=== PATIENT | female | born 1950 | race Caucasian/White ===

== ENCOUNTER → 2019-10-29 | Outpatient (CLI) | payer MEDICARE, OTHER ==
[~2019-10-29] MED LIST: ASPI81CH PO; ATOR20 PO; CARV6.25 PO; CLOP75 PO; DICL75ER PO; IRON PO; LEVSOD100 PO; LOSA25 PO; NAPR220 PO; TORS10 PO; Vitamin D2000 UNIT PO
[2019-10-29 14:53] LABS: Creatinine, Urine Random 54.3 mg/dL (27.00-270.00); Protein, Urine Random 5.9 mg/dL (0.0-11.9)
== END | disposition home or self-care (01) ==
LOC: LAB 13:50 → LAB SHORT 13:50
PROVIDERS: Internal Medicine
DX: N18.4 Chronic kidney disease, stage 4 (severe) (principal)
CPT/HCPCS: 82570; 84156

== ENCOUNTER 2019-11-30 13:28 | Inpatient (IN) | payer MEDICARE, OTHER ==
[~2019-11-30] VITALS: Ht 154.9 cm; Wt 49.8 kg
--- NOTE | 2019-12-03 07:10 | NUR ---
Patient up to Ambulate independently. Gait steady. Surgical site prepped with 2% Chlorhexidine cloth wipe. History, Chart, Medications and Allergies reviewed before start of procedure. Lungs clear T/O to Auscultation. Patient confirms NPO status and agrees with scheduled surgery. Pre-Op teaching done. Pt verbalizes understanding. Patient reports completing Chlorhexadine shower X2 prior to admission to hospital.
--- NOTE | 2019-12-03 18:30 | NUR ---
SHIFT SUMMARY PT EATING AND DRINKING, VOIDING. PT [place] WITH CLEAR SPEECH. PT HAS TEDS/PAS/POLAR PAC IN PLACE. FAMILY IN/OUT OF ROOM. PT WORKED WITH THERAPY AND HAS ALSO WALKED IN HALLWAY WITH GB AND WALKER. PT REPORTS NOT MUCH PAIN AT ALL.
--- NOTE | 2019-12-04 03:40 | NUR ---
SHIFT SUMMARY POD 1 S/P RIGHT RADHA. AQUACEL C/D/I WITH POLAR PACK, TEDS, AND SCD'S IN PLACE. ABLE TO AMBULATE IND WITH SBA, FWW, AND GB. MEDICATED ONCE WITH ONE ROXICODONE DURING SHIFT. TOLERATING PO INTAKE, DENIES N/V. APPEARS TO HAVE RESTED WELL T/O NIGHT. IS CURRENTLY SLEEPING IN BED WITH CALL LIGHT IN REACH. WILL CONTINUE TO MONITOR AND GIVE REPORT TO ONCOMING RN.
[2019-12-04 04:18] LABS: BASOPHILS ABSOLUTE AUTO 0.01 K/mm3 (0.00-0.23); BASOPHILS PERCENT AUTO 0 % (0-2); EOSINOPHILS ABSOLUTE AUTO 0.01 K/mm3 (0.00-0.68); EOSINOPHILS PERCENT AUTO 0 % (0-6); Hematocrit 25.9 % (33.0-51.0); Hemoglobin 8.2 g/dL (11.5-16.0); IMMATURE GRAN ABSOLUTE AUTO 0.04 K/mm3 (0.00-0.10); IMMATURE GRAN PERCENT AUTO 0 % (0-1); LYMPHOCYTES ABSOLUTE AUTO 0.77 K/mm3 (0.84-5.20); LYMPHOCYTES PERCENT AUTO 8 % (21-46); MONOCYTES ABSOLUTE AUTO 0.78 K/mm3 (0.16-1.47); MONOCYTES PERCENT AUTO 9 % (4-13); Mean Corpuscular HGB 29.2 pg (26.0-34.0); Mean Corpuscular HGB Conc 31.7 g/dL (31.5-36.5); Mean Corpuscular Volume 92 fL (80-100); Mean Platelet Volume 9.2 fL (9.1-12.4); NEUTROPHILS ABSOLUTE AUTO 7.59 K/mm3 (1.96-9.15); NEUTROPHILS PERCENT AUTO 83 % (41-73); Platelet Count 225 K/mm3 (150-400); RDW Coefficient Variation 12.8 % (11.7-14.2); RDW Standard Deviation 43.5 fL (35.1-46.3); Red Blood Cell Count 2.81 M/mm3 (3.80-5.20)
[2019-12-04 04:32] LABS: Bun/Creatinine Ratio 21.2 (12.0-20.0); Calcium, Blood 8.6 mg/dL (8.5-10.1); Creatinine, Blood 1.65 mg/dL (0.40-1.00); Magnesium, Blood 2.3 mg/dL (1.6-2.4); Potassium, Blood 4.5 mmol/L (3.5-5.5)
--- NOTE | 2019-12-04 07:52 | NUR ---
CLAUDIA (ALFA) HERE TO SEE PT.
[2019-12-04] MEDS ORDERED: FERSU300 PO (10:04)
[2019-12-04] MEDS ORDERED: ROXICODONE5 MG PO (10:06)
== END 2019-12-04 12:56 | disposition home or self-care (01) | DRG 470 ==
LOC: SURS 12-03 05:51 → PRE IP 12-03 07:30 → SURS 12-03 12:07
PROVIDERS: ADMIT Orthopaedic Surgery
PROC: 0SR904A Replacement of Right Hip Joint with Ceramic on Polyethylene Synthetic Substitute, Uncemented, Open Approach (ICD-10-PCS; principal; 2019-12-03 07:30)
DX: M16.11 Unilateral primary osteoarthritis, right hip (principal); I25.10 Atherosclerotic heart disease of native coronary artery without angina pectoris; I12.9 Hypertensive chronic kidney disease with stage 1 through stage 4 chronic kidney disease, or unspecified chronic kidney disease; N18.9 Chronic kidney disease, unspecified; E11.22 Type 2 diabetes mellitus with diabetic chronic kidney disease; J44.9 Chronic obstructive pulmonary disease, unspecified; Z95.5 Presence of coronary angioplasty implant and graft; Z95.1 Presence of aortocoronary bypass graft; I25.2 Old myocardial infarction; Z87.891 Personal history of nicotine dependence
CPT/HCPCS: 36415; 72170; 80048; 82947; 83735; 85025; 88300; 88305; 97110; 97116; 97162; 97530; A9270-GY; C1776; J0171; J0690; J0735; J1100; J1885; J2250; J2370; J2405; J2550; J2704; J2795; J3010; J7120

== ENCOUNTER → 2024-08-06 | Outpatient (CLI) | payer MEDICARE, OTHER ==
[~2024-08-06] MED LIST changes: +FERSU300 PO; +ROXICODONE5 MG PO
[2024-08-06 13:25] LABS: BASOPHILS ABSOLUTE AUTO 0.01 K/mm3 (0.00-0.23); BASOPHILS PERCENT AUTO 0 % (0-2); EOSINOPHILS PERCENT AUTO 0 % (0-6); Hematocrit 43.3 % (33.0-51.0); Hemoglobin 14.5 g/dL (11.5-16.0); IMMATURE GRAN ABSOLUTE AUTO 0.04 K/mm3 (0.00-0.10); IMMATURE GRAN PERCENT AUTO 1 % (0-1); LYMPHOCYTES ABSOLUTE AUTO 0.19 K/mm3 (0.84-5.20); LYMPHOCYTES PERCENT AUTO 2 % (21-46); MONOCYTES ABSOLUTE AUTO 0.29 K/mm3 (0.16-1.47); MONOCYTES PERCENT AUTO 4 % (4-13); Mean Corpuscular HGB 27.9 pg (26.0-34.0); Mean Corpuscular HGB Conc 33.5 g/dL (31.5-36.5); Mean Corpuscular Volume 83 fL (80-100); Mean Platelet Volume 10.4 fL (9.1-12.4); NEUTROPHILS ABSOLUTE AUTO 7.75 K/mm3 (1.96-9.15); NEUTROPHILS PERCENT AUTO 94 % (41-73); Platelet Count 189 K/mm3 (150-400); RDW Coefficient Variation 16.7 % (11.7-14.2); RDW Standard Deviation 48.6 fL (35.1-46.3); Red Blood Cell Count 5.19 M/mm3 (3.80-5.20); White Blood Cell Count 8.28 K/mm3 (4.00-11.30)
[2024-08-06 13:37] LABS: Albumin, Blood 3.5 g/dL (3.4-5.0); Albumin/Globulin Ratio 1.3 (0.8-1.8); Bilirubin, Total 2.5 mg/dL (0.1-1.0); Calcium, Blood 9.6 mg/dL (8.5-10.1); Creatinine, Blood 2.61 mg/dL (0.40-1.00); Globulin, Blood 2.8 g/dL (2.2-4.0); Potassium, Blood 4.4 mmol/L (3.5-5.5); Total Protein, Blood 6.3 g/dL (6.4-8.2)
== END | disposition home or self-care (01) ==
LOC: LAB SHORT 13:22 → LAB 13:22
PROVIDERS: Physician Assistant
DX: R60.9 Edema, unspecified (principal)
CPT/HCPCS: 80053; 83690; 83880; 85025; 85379

== ENCOUNTER 2024-09-07 20:16 | Emergency (ER) | payer MEDICARE, OTHER ==
[~2024-09-07] VITALS: Ht 154.9 cm; Wt 58.1 kg
[2024-09-07 21:54] LABS: BASOPHILS ABSOLUTE AUTO 0.03 K/mm3 (0.00-0.23); BASOPHILS PERCENT AUTO 1 % (0-2); EOSINOPHILS ABSOLUTE AUTO 0.05 K/mm3 (0.00-0.68); EOSINOPHILS PERCENT AUTO 1 % (0-6); Hematocrit 36.8 % (33.0-51.0); Hemoglobin 12.3 g/dL (11.5-16.0); IMMATURE GRAN ABSOLUTE AUTO 0.03 K/mm3 (0.00-0.10); IMMATURE GRAN PERCENT AUTO 1 % (0-1); LYMPHOCYTES ABSOLUTE AUTO 0.27 K/mm3 (0.84-5.20); LYMPHOCYTES PERCENT AUTO 4 % (21-46); MONOCYTES ABSOLUTE AUTO 0.43 K/mm3 (0.16-1.47); MONOCYTES PERCENT AUTO 7 % (4-13); Mean Corpuscular HGB 28.1 pg (26.0-34.0); Mean Corpuscular HGB Conc 33.4 g/dL (31.5-36.5); Mean Corpuscular Volume 84 fL (80-100); Mean Platelet Volume 10.7 fL (9.1-12.4); NEUTROPHILS ABSOLUTE AUTO 5.71 K/mm3 (1.96-9.15); NEUTROPHILS PERCENT AUTO 88 % (41-73); Platelet Count 142 K/mm3 (150-400); RDW Standard Deviation 54.6 fL (35.1-46.3); Red Blood Cell Count 4.37 M/mm3 (3.80-5.20); White Blood Cell Count 6.52 K/mm3 (4.00-11.30)
[2024-09-07 22:01] LABS: Source, Urine Clean Catch
[2024-09-07 22:07] LABS: Appearance, Urine Clear (Clear); Bilirubin, Urine Neg (Neg); Blood, Urine Neg (Neg); Color, Urine Yellow (P-Yellow); Glucose Qualitative, Urine 4+ (Neg); Ketones, Urine Neg (Neg); Leukocyte Esterase, Urine Neg (Neg); Nitrite, Urine Neg (Neg); Protein, Urine 1+ (Neg); Specific Gravity, Urine 1.015 (1.003-1.022); Urobilinogen, Urine NORM (Normal)
[2024-09-07 22:12] LABS: Albumin, Blood 2.8 g/dL (3.4-5.0); Bilirubin, Total 1.5 mg/dL (0.1-1.0); Calcium, Blood 9.1 mg/dL (8.5-10.1); Creatinine, Blood 1.64 mg/dL (0.40-1.00); Globulin, Blood 2.8 g/dL (2.2-4.0); Magnesium, Blood 2.1 mg/dL (1.6-2.4); Potassium, Blood 4.5 mmol/L (3.5-5.5); Total Protein, Blood 5.6 g/dL (6.4-8.2)
[2024-09-07 22:40] LABS: Influenza A, PCR NEGATIVE (NEGATIVE); Influenza B, PCR NEGATIVE (NEGATIVE); Resp Syncytial Virus, PCR NEGATIVE (NEGATIVE); SARS-Cov-2 (COVID-19) PCR, MMC NEGATIVE (NEGATIVE)
[2024-09-07 23:41] VITALS: BP 90/67
== END 2024-09-07 23:41 | disposition home or self-care (01) ==
LOC: ER 20:16
PROVIDERS: Student in an Organized Health Care Education/Training Program
DX: R53.1 Weakness (principal); E78.5 Hyperlipidemia, unspecified; E03.9 Hypothyroidism, unspecified; Z95.810 Presence of automatic (implantable) cardiac defibrillator; Z87.891 Personal history of nicotine dependence; Z79.82 Long term (current) use of aspirin; Z79.899 Other long term (current) drug therapy; Z88.5 Allergy status to narcotic agent
CPT/HCPCS: 0241U; 71045; 80053; 83735; 85025; 99284-25

== ENCOUNTER 2024-09-13 03:27 | Emergency (ER) | payer MEDICARE, OTHER ==
[~2024-09-13] VITALS: Ht 147.3 cm; Wt 47.6 kg
[2024-09-13 03:38] VITALS: BP 106/72
[2024-09-13 03:44] LABS: Source, Urine Straight Cath
[2024-09-13 03:47] LABS: Bilirubin, Urine Neg (Neg); Blood, Urine Neg (Neg); Glucose Qualitative, Urine Neg (Neg); Ketones, Urine Neg (Neg); Leukocyte Esterase, Urine Neg (Neg); Nitrite, Urine Neg (Neg); Protein, Urine Neg (Neg); Specific Gravity, Urine 1.015 (1.003-1.022); Urobilinogen, Urine 2+ (Normal)
[2024-09-13 03:58] LABS: Appearance, Urine Clear (Clear); Color, Urine Yellow (P-Yellow)
== END 2024-09-13 04:41 | disposition home or self-care (01) ==
LOC: ER 03:27
PROVIDERS: Emergency Medicine
DX: Z71.1 Person with feared health complaint in whom no diagnosis is made (principal); Z87.891 Personal history of nicotine dependence; E78.5 Hyperlipidemia, unspecified; E03.9 Hypothyroidism, unspecified; Z79.82 Long term (current) use of aspirin; Z79.899 Other long term (current) drug therapy; Z88.5 Allergy status to narcotic agent
CPT/HCPCS: 51701; 81003; 99283-25

== ENCOUNTER 2024-09-13 11:50 | Emergency (ER) | payer MEDICARE, OTHER ==
[~2024-09-13] VITALS: Ht 154.9 cm; Wt 49.9 kg
[2024-09-13 12:45] LABS: BASOPHILS ABSOLUTE AUTO 0.02 K/mm3 (0.00-0.23); BASOPHILS PERCENT AUTO 0 % (0-2); EOSINOPHILS PERCENT AUTO 0 % (0-6); Hematocrit 29.9 % (33.0-51.0); IMMATURE GRAN ABSOLUTE AUTO 0.03 K/mm3 (0.00-0.10); IMMATURE GRAN PERCENT AUTO 1 % (0-1); LYMPHOCYTES ABSOLUTE AUTO 0.31 K/mm3 (0.84-5.20); LYMPHOCYTES PERCENT AUTO 6 % (21-46); MONOCYTES ABSOLUTE AUTO 0.28 K/mm3 (0.16-1.47); MONOCYTES PERCENT AUTO 5 % (4-13); Mean Corpuscular HGB 28.6 pg (26.0-34.0); Mean Corpuscular HGB Conc 33.4 g/dL (31.5-36.5); Mean Corpuscular Volume 85 fL (80-100); Mean Platelet Volume 11.5 fL (9.1-12.4); NEUTROPHILS ABSOLUTE AUTO 4.82 K/mm3 (1.96-9.15); NEUTROPHILS PERCENT AUTO 88 % (41-73); Platelet Count 184 K/mm3 (150-400); RDW Coefficient Variation 20.3 % (11.7-14.2); RDW Standard Deviation 59.1 fL (35.1-46.3); White Blood Cell Count 5.46 K/mm3 (4.00-11.30)
[2024-09-13 13:19] LABS: Albumin, Blood 2.5 g/dL (3.4-5.0); Albumin/Globulin Ratio 1.1 (0.8-1.8); Bilirubin, Total 4.5 mg/dL (0.1-1.0); Bun/Creatinine Ratio 30.9 (12.0-20.0); Calcium, Blood 8.5 mg/dL (8.5-10.1); Creatinine, Blood 2.17 mg/dL (0.40-1.00); Globulin, Blood 2.3 g/dL (2.2-4.0); Potassium, Blood 4.9 mmol/L (3.5-5.5); Total Protein, Blood 4.8 g/dL (6.4-8.2)
[2024-09-13 13:24] LABS: International Normalized Ratio 3.83; Prothrombin Time Results 37.1 Sec (9.7-11.5)
[2024-09-13 13:31] LABS: BASOPHILS PERCENT MAN 0 % (0-2); EOSINOPHILS PERCENT MAN 0 % (0-6); LYMPHOCYTES ABSOLUTE MAN 0.05 K/mm3 (0.84-5.20); LYMPHOCYTES PERCENT MAN 1 % (21-46); MONOCYTES ABSOLUTE MAN 0.05 K/mm3 (0.16-1.47); MONOCYTES PERCENT MAN 1 % (4-13); NEUTROPHILS ABSOLUTE MAN 5.35 K/mm3 (1.96-9.15); SEG NEUTROPHILS PERCENT MAN 98 % (41-73); TOTAL CELLS COUNTED 100
[2024-09-13] MEDS ORDERED: Dextrose 10% 500 ML IV SCH (14:20)
[2024-09-13] MEDS ORDERED: Phytonadione 5 MG in NS 50 ML IV ONE (15:45)
[2024-09-13] MEDS ORDERED: Pantoprazole Sodium 40 MG Injection IV SCH (16:00)
[2024-09-13 17:14] LABS: Bilirubin, Direct 2.5 mg/dL (0.0-0.3); Bilirubin, Indirect 2.1 mg/dL (0.1-0.7); Bilirubin, Total 4.6 mg/dL (0.1-1.0)
[2024-09-13] MEDS ORDERED: NS 1,000 ML IV ONE (17:29)
[2024-09-13] MEDS ORDERED: NS 1,000 ML IV SCH (17:50)
[2024-09-13 20:13] LABS: Hematocrit 29.3 % (33.0-51.0); Hemoglobin 9.9 g/dL (11.5-16.0)
[2024-09-14] VITALS: BP 90/71
== END 2024-09-14 00:20 | disposition short-term general hospital (02) ==
LOC: ER 11:50
PROVIDERS: Emergency Medicine
DX: K72.90 Hepatic failure, unspecified without coma (principal); N17.9 Acute kidney failure, unspecified; K92.1 Melena; S00.81XA Abrasion of other part of head, initial encounter; E78.5 Hyperlipidemia, unspecified; E03.9 Hypothyroidism, unspecified; Z87.891 Personal history of nicotine dependence; Z79.02 Long term (current) use of antithrombotics/antiplatelets; Z79.82 Long term (current) use of aspirin; Z79.899 Other long term (current) drug therapy; Z88.5 Allergy status to narcotic agent; Z79.890 Hormone replacement therapy; Z66 Do not resuscitate; X83.8XXA Intentional self-harm by other specified means, initial encounter; Z71.1 Person with feared health complaint in whom no diagnosis is made
CPT/HCPCS: 51701; 70450; 74176; 76705; 80053; 81003; 82140; 82247; 82248; 82947; 85014; 85018; 85025; 85610; 85730; 86850; 86900; 86901; 93005; 93010; 96365-59; 96375; 99283-25; 99285-25; J2470; J3430; J7030